=== PATIENT | male | born 1945 | race Caucasian/White ===

== ENCOUNTER 2019-10-09 14:31 | Emergency (ER) | payer OTHER, MEDICAID ==
[~2019-10-09] VITALS: Ht 167.6 cm; Wt 72.6 kg
--- NOTE | 2019-10-09 14:36 | NUR ---
[id number] FOR TRAFFIC ACCIDENT. UNABLE TO RECALL WHAT HAPPEN. BG [id number] CLINICAL TECHNOLOGIST. PATIENT A/OX4, BREATHING EVEN AND UNLABORED, NO SOB NOTED. KEPT COMFORTABLE. ATTACHED TO THE [employer] OPERATOR. NEEDS ATTENDED, KEPT COMFORTABLE.
[2019-10-09 14:45] LABS: BASOPHILS # (AUTO) 0.1 /CMM (0.0-0.2); BASOPHILS % (AUTO) 0.9 % (0.0-2.0); EOSINOPHILS % (AUTO) 4.2 % (0.0-6.0); HEMATOCRIT 38 % (39-51); LYMPHOCYTES # (AUTO) 0.8 /CMM (0.8-4.8); MEAN CORPUSCULAR HGB CONC 34 g/dl (31.0-36.0); MEAN CORPUSCULAR VOLUME 93 fL (80-96); MONOCYTES # (AUTO) 0.4 /CMM (0.1-1.30); MONOCYTES % (AUTO) 7.9 % (2.0-12.0); PLATELET COUNT (AUTO) 140 /CMM (150-450); RED BLOOD CELL COUNT(AUTO) 4.13 MIL/uL (4.5-6.0); WHITE BLOOD COUNT (AUTO) 5.5 K/uL (4.3-11.0)
[2019-10-09 14:51] LABS: CALCIUM, SERUM 8.8 mg/dL (8.5-10.1); CARBON DIOXIDE 23 mmol/L (21-32); CHLORIDE 107 mmol/L (98-107); CREATININE 1.9 mg/dL (0.6-1.3); GLUCOSE 160 mg/dL (74-106); SODIUM SERUM 141 mmol/L (136-145); UREA NITROGEN, BLOOD 34 mg/dL (7-18)
[2019-10-09 14:57] LABS: ALBUMIN 3.5 g/dL (3.4-5.0); ALKALINE PHOSPHATASE 83 U/L (46-116); BILIRUBIN,TOTAL 0.6 mg/dL (0.2-1.0); TOTAL PROTEIN, SERUM 6.8 g/dL (6.4-8.2)
--- NOTE | 2019-10-09 15:24 | NUR ---
PATIENT AWAKE AND ALERT, ORIENTED X4, BREATHING EVEN AND UNLABORED, NO SOB NOTED. NO CHANGE IN LOC. DENIES PAIN, DENIES HEADACHE NOR DIZZINESS AT THIS TIME.
--- NOTE | 2019-10-09 15:25 | NUR ---
[facility]ED [facility] A[facility] CALL BACK
[2019-10-09 15:33] LABS: ALANINE AMINOTRANSFERASE 7 U/L (12-78); ASPARTATE AMINOTRANSFERASE 14 U/L (15-37)
--- NOTE | 2019-10-09 15:40 | NUR ---
DR CLINE ACCEPTED PT AT [facility]
--- NOTE | 2019-10-09 15:48 | NUR ---
CALLED [facility] [place] [facility]#[id number]
[2019-10-09] MEDS ORDERED: PROTHROMBIN COMPLEX CONCENTR 500 UNIT VIAL IV ONE (16:00)
--- NOTE | 2019-10-09 16:17 | NUR ---
SHARA JON ACCEPTING PT
[2019-10-09] MEDS ORDERED: ENALAPRILAT INJ (1.25 MG/ML) 1.25 MG/ML VIAL IV ONE (16:18)
[2019-10-09 16:25] VITALS: BP 164/80
[2019-10-09] MEDS ORDERED: ENALAPRILAT INJ (1.25 MG/ML) 1.25 MG/ML VIAL IV PRN (16:30)
--- NOTE | 2019-10-09 16:30 | NUR ---
TRANSFER INFO: [facility] ICU ROOM 5109. RN FOR REPORT [phone]. ACCEPTING NEUROSURGEON DR HI, ACCEPTING HOSPITALIST DR SCOTT. [facility] ETA [id number]
--- NOTE | 2019-10-09 16:38 | NUR ---
REPORT GIVEN TO THIERRY IVORY AT [facility].
--- NOTE | 2019-10-09 16:56 | NUR ---
CHAS DUPLICATE ORDER, PHARMACY CHANGED THE ORDER.
[2019-10-09] MEDS ORDERED: WATER FOR INJECTION STERILE IV ONE ×2 (17:00)
[2019-10-09] MEDS ORDERED: PROTHROMBIN COMPLEX CONCENTR IV ONE ×2 (17:00)
--- NOTE | 2019-10-09 17:27 | NUR ---
REPORT GIVEN TO EMT, PATIENT A/OX2, FORGETFUL, VERBALLY RESPONSIVE. NO DISTRESS NOTED, ABLE TO FOLLOW COMMANDS, -N/V. NEEDS ATTENDED, KEPT COMFORTABLE. LEFT THE FACILITY VIA [facility]SPORT TO [facility].
== END 2019-10-09 17:32 ==
LOC: ER 14:33
DX: I62.9 Nontraumatic intracranial hemorrhage, unspecified (principal); R41.82 Altered mental status, unspecified; R55 Syncope and collapse; I10 Essential (primary) hypertension; Z88.0 Allergy status to penicillin; V49.49XA Driver injured in collision with other motor vehicles in traffic accident, initial encounter; Y93.89 Activity, other specified; Y92.488 Other paved roadways as the place of occurrence of the external cause; Y99.8 Other external cause status
CPT/HCPCS: 36415; 70450; 71045; 80048; 80076; 84484; 85025; 85730; 93005; 96375; 96374; 99285; C9132; J3490